=== PATIENT | female | born 1935 | race Caucasian/White ===

== ENCOUNTER → 2018-05-28 12:40 | Outpatient (CLI) | payer MEDICARE, OTHER, SELFPAY ==
--- NOTE | 2018-05-28 | DI.US.S_ITS ---
PROCEDURE: US CAROTID DOPPLER BI INDICATIONS: DIZZINESS, VERTIGO TECHNIQUE: Color and pulse Doppler interrogation was performed of both carotid systems, with image documentation and velocity measurements. COMPARISON: None. FINDINGS: Stenosis calculations are based on SRU (Society of Radiologists in Ultrasound) criteria. Right side: Brachial blood pressure: 137/85 mm Hg. Common carotid artery peak systolic velocity: 53 cm/sec. Internal carotid artery peak systolic velocity: 112 cm/sec. Internal carotid artery end diastolic velocity: 12 cm/sec. External carotid artery peak systolic velocity: 125 cm/sec. ICA/CCA peak systolic ratio: 2.1. Lange scale imaging description: Severe scattered plaque. Percent internal carotid artery stenosis: Less than 50%. Vertebral artery: Flow direction is antegrade. Left side: Brachial blood pressure: 130/78 mm Hg. Common carotid artery peak systolic velocity: 87 cm/sec. Internal carotid artery peak systolic velocity: 98 cm/sec. Internal carotid artery end diastolic velocity: 32 cm/sec. External carotid artery peak systolic velocity: 54 cm/sec. ICA/CCA peak systolic ratio: 1 in. Lange scale imaging description: Severe scattered plaque. Percent internal carotid artery stenosis: Less than 50%. Vertebral artery: Flow direction is antegrade. IMPRESSION: Less than 50% bilateral internal carotid artery stenosis. Dictated by: Alireza Cloud [facility] Interpreted: Roberto Burgess MD on 05/28/2018 at 14:41 Approved by: Roberto Burgess M.D. on 05/28/2018 at 15:20
== END ==
PROVIDERS: PCP Family Medicine; Visit Provider Family Medicine
DX: R42 Dizziness and giddiness (principal); I65.23 Occlusion and stenosis of bilateral carotid arteries
CPT/HCPCS: 93880

== ENCOUNTER → 2018-07-01 11:26 | Outpatient (CLI) | payer MEDICARE, OTHER, SELFPAY ==
--- NOTE | 2018-07-01 | DI.MRI.S_ITS ---
PROCEDURE: MR ANGIO NECK W CON INDICATIONS: BILATERAL CAROTID ARTERY STENOSIS TECHNIQUE: Axial and sagittal TruFISP through the neck. Coronal dynamic MRA after the administration of contrast in the arterial and venous phases, with rotating 3-dimensional maximum intensity projection (MIP) reformats constructed from subtraction images. COMPARISON: [facility], , CAROTID DOPPLER BI, 05/28/2018, 12:50. FINDINGS: Image quality: Excellent. Carotid system: Great vessels demonstrate a conventional anatomy as they arise from the aortic arch. The origins of the common carotid arteries appear normal. Bilateral proximal and mid common carotid arteries are widely patent. There is a focal weblike stenosis within the distal right common carotid artery, which is suboptimally evaluated. The right external carotid artery is patent. The right internal carotid artery demonstrates a roughly 30% focal origin stenosis, and is otherwise patent. There is mild, roughly 30% stenosis of the distal left common carotid artery. Left internal carotid artery demonstrates a roughly 30% origin stenosis, and is otherwise patent. Left external carotid artery is patent. Posterior circulation: Right vertebral artery origin is patent. Left vertebral artery origin is not well seen, and is possibly moderately or severely stenotic. The more superior portions of the vertebral arteries demonstrate normal course and caliber. Vertebral arteries join to form a normal appearing basilar artery. Miscellaneous: Subclavian arteries are patent throughout. Pre-contrast images through the neck demonstrate no soft tissue abnormalities. IMPRESSION: 1. Suboptimally visualized right distal common carotid artery stenosis. Given the carotid arterial Doppler examination findings, this is likely a roughly 50% stenosis. 2. Mild, roughly 30% stenoses of the bilateral internal carotid artery origins. 3. Patent right vertebral artery. 4. Suboptimally visualized left vertebral artery origin. Any quantitative measurements of stenosis were performed using NASCET criteria. Dictated by: Pauly Gonzalez M.D. on 07/01/2018 at 13:27 Approved by: Pauly Gonzalez M.D. on 07/01/2018 at 13:32
--- NOTE | 2018-07-01 | DI.MRI.S_ITS ---
PROCEDURE: MR ANGIO HEAD WO CON INDICATIONS: POSTURAL DIZZINESS BILATERAL CAROTID ARTERY STENOS TECHNIQUE: Noncontrast axial 3-D [id number] MR angiogram, with 3-dimensional maximum intensity projection (MIP) reformats of the internal carotid arteries and posterior circulation then performed. COMPARISON: None. FINDINGS: Image quality: Excellent. Anterior circulation: There is mild narrowing of the bilateral cavernous internal carotid arteries. The flow within the paired anterior cerebral arteries is normal and symmetric. The flow within the middle cerebral arteries is normal and symmetric. The anterior communicating artery is seen. No stenoses, occlusions, or aneurysms. Posterior circulation: Visualized portions of the vertebral arteries demonstrate normal caliber, and join to form a normal appearing basilar artery. origin of the right posterior cerebral artery. The flow within the posterior cerebral arteries is normal and symmetric. No stenoses, occlusions, or aneurysms. IMPRESSION: 1. Mild narrowing of the cavernous internal carotid arteries bilaterally. Otherwise negative cerebral MR angiography. Dictated by: Pauly Gonzalez M.D. on 07/01/2018 at 13:23 Approved by: Pauly Gonzalez M.D. on 07/01/2018 at 13:25
== END ==
PROVIDERS: PCP Family Medicine; Visit Provider Family Medicine
DX: I65.23 Occlusion and stenosis of bilateral carotid arteries (principal); R42 Dizziness and giddiness
CPT/HCPCS: 70544; 70548

== ENCOUNTER → 2020-03-24 13:10 | Outpatient (CLI) | payer MEDICARE, OTHER, SELFPAY ==
--- NOTE | 2020-03-24 | DI.ECHO.S_ITS ---
[place] [facility]---------+ [facility] +---------+ : : [address] : : : : [id number] : : : : Phone: [phone]+ Echocardiogram Report + + :Name: MARY DO Study Date: 03/24/2020 Height: 62 in : :[facility] Weight: 163 lb : : Gender: Female BSA: 1.8 m2 : :: 1935 Age: 84 yrs BP: 110/70 mmHg: :Reason For Study: Aortic valve stenosis : : Performed By: Jonelle Page : + + Interpretation Summary 1) Normal left ventricular thickness, size, wall motion, and systolic function (EF 65-70%). 2) Normal right ventricular size and function. 3) There is moderate to severe aortic stenosis (valve area 0.8cm2, mean gradient 33mmHg, severity ratio 0.21). There is mild to moderate aortic regurgitation. 4) No prior Echo available for comparison. Consider cardiology consultation. Procedure: A two-dimensional transthoracic echocardiogram with color flow and Doppler was performed. The study quality was technically adequate. There is no prior echocardiogram noted for this patient. The heart rate ranged between 51-65 bpm during the study. The patient had frequent PACs during the exam. Left Ventricle: The left ventricle is normal in size and wall thickness. The ejection fraction is estimated to be 65-70%. There are no focal wall motion abnormalities. Diastolic parameters suggest a relaxation abnormality of the left ventricle, consistent with probable normal filling pressures. Right Ventricle: The right ventricle is normal in size and function. Atria: The left atrium is moderately dilated. Right atrial size is normal. There is no Doppler evidence for an interatrial shunt. Mitral Valve: The mitral valve leaflets appear moderately thickened, but open well. There is trace mitral regurgitation. Aortic Valve: The aortic valve is moderately calcified. The peak aortic velocity is 3.7 m/sec. The aortic valve mean gradient is 33.3 mmHg. The calculated aortic valve area is 0.8 cm2. There is moderate to severe aortic stenosis. There is mild to moderate aortic regurgitation. Tricuspid Valve: The tricuspid valve is normal. There is mild tricuspid regurgitation. The right ventricular systolic pressure is estimated to be at least 34 mmHg based on an estimated right atrial pressure of 3 mm Hg. Pulmonic Valve: The pulmonic valve is not well seen, but is grossly normal. There is trace pulmonic regurgitation. Great Vessels: The aortic root is normal size. The ascending aorta is at the upper limits of normal in size. The pulmonary artery is not well visualized, but is probably normal size. The IVC is of normal diameter and collapses greater than 50% with a sniff. This suggests a low right atrial pressure of 3 mm Hg. Pericardium/ Pleura There is a trivial pericardial effusion noted. There is no pleural effusion. MMode/2D Measurements & Calculations LVIDd: 5.0 cm LVOT diam: 2.2 cm LVIDs: 2.7 cm Ao root diam: 3.2 cm FS: 46.5 % asc Aorta Diam: 3.5 cm IVSd: 0.76 cm LVPWd: 0.59 cm LV koch. diameter/BSA (cm/m^2): 2.8 LV sys. diameter/BSA (cm/m^2): 1.5 LA A2 area: 25.4 cm2 RA long axis: 5.6 cm LA A4 area: 24.0 cm2 RA area: 18.2 cm2 LA length (vol): 6.1 cm RA vol: 50.2 ml LA vol: 84.3 ml RA : 28.7 ml/m2 LA vol index: 48.1 ml/m2 IVC diam: 1.8 cm RVD1 (basal): 3.4 cm TAPSE: 2.4 cm Doppler Measurements & Calculations Ao V2 max: 366.2 cm/sec LVOT Max Timbo: 77.5 cm/sec Ao V2 mean: 278.3 cm/sec LV V1 max P.4 mmHg Ao max P.6 mmHg LV V1 VTI: 20.2 cm Ao mean P.3 mmHg SEVERO(I,D): 0.77 cm2 Ao V2 VTI: 95.3 cm SEVERO(V,D): 0.77 cm2 sev ratio: 0.21 SEVERO indexed to BSA (cm^2/m^2): 0.44 AI P1/2t: 653.0 msec AI dec slope: 135.3 cm/sec2 MV E max timbo: 94.9 cm/sec TR max timbo: 277.0 cm/sec MV A max timbo: 104.6 cm/sec TR max P.7 mmHg MV E/A: 0.91 PA V2 max: 78.1 cm/sec Med Peak E' Timbo: 3.7 cm/sec PA V2 mean: 46.3 cm/sec E/E' med: 25.8 PA mean P.0 mmHg Lat Peak E' Timbo: 2.4 cm/sec PA Accel Time: 0.07 sec E/E' lat: 39.2 E/e' average: 32.5 MV dec time: 0.15 sec SV(NARINDER): 73.3 ml Reading Physician:05:26 PM
== END ==
PROVIDERS: PCP Family Medicine; Referring Provider Family Medicine; Visit Provider Family Medicine
DX: I08.2 Rheumatic disorders of both aortic and tricuspid valves (principal)
CPT/HCPCS: 93306

== ENCOUNTER → 2021-02-01 13:11 | Outpatient (CLI) | payer MEDICARE, OTHER, SELFPAY ==
--- NOTE | 2021-02-01 13:13 | DI.ECHO.S_ITS ---
[place] +---------+ [facility] +---------+ : : [address] : : : : [id number] : : : : Phone: [phone]+ Echocardiogram Report + + :Name: MARY DO Study Date: 02/01/2021 Height: 61 in : :[facility] ReadingLocation: Weight: 160 lb : : Gender: Female BSA: 1.7 m2 : :: 1935 Age: 85 yrs BP: 120/81 mmHg: :Reason For Study: AORTIC INSUFFICIENCY : :Ordering Physician: EDNA, : :[place] Performed By: Cecile Cutler : :Referring: [place]NA BISHOP : + + Interpretation Summary 1) Normal left ventricular thickness, size, wall motion, and systolic function (EF 65-70%). 2) Normal right ventricular size and function. 3) There is severe aortic stenosis (valve area 0.7cm2, mean gradient 40mmHg, severity ratio 0.17). There is mild to moderate aortic regurgitation. 4) Compared to the Echo done 03/24/2020, aortic stenosis has progressed from moderate-severe to severe on this study. Recommend cardiology consultation. Procedure: A two-dimensional transthoracic echocardiogram with color flow and Doppler was performed. The study quality was technically adequate. Comparison is made with the echocardiogram of 03/24/2020. The heart rate ranged between 68-92 bpm during the study. Left Ventricle: The left ventricle is normal in size. Proximal septal thickening is noted. The ejection fraction is estimated to be 65-70%. Left ventricular systolic function appears normal without focal wall motion abnormalities. Diastolic parameters suggest a pseudonormalization pattern, consistent with probable elevated filling pressures. Right Ventricle: The right ventricle is normal in size and function. Atria: The left atrium is severely dilated. Right atrial size is normal. There is no Doppler evidence for an interatrial shunt. Mitral Valve: The mitral valve leaflets appear moderately thickened, but open well. The mitral valve leaflets are mildly calcified. There is mild mitral annular calcification. There is trace mitral regurgitation. Aortic Valve: The aortic valve is trileaflet. The aortic valve is moderately calcified. There is severe aortic stenosis. The peak aortic velocity is 4.4 m/sec. The aortic valve mean gradient is 40 mmHg. Aortic valve velocity ratio is 0.17. There is mild to moderate aortic regurgitation. Tricuspid Valve: The tricuspid valve is normal in structure and function. There is mild tricuspid regurgitation. The right ventricular systolic pressure is estimated to be at least 31 mmHg based on an estimated right atrial pressure of 3 mm Hg. Pulmonic Valve: The pulmonic valve is not well visualized. There is no pulmonic valvular regurgitation. Great Vessels: The aortic root is normal size. The ascending aorta is mildly enlarged. The IVC is of normal diameter and collapses greater than 50% with a sniff. This suggests a low right atrial pressure of 3 mm Hg. Pericardium/ Pleura There is a trace pericardial effusion that is circumferential. There is no pleural effusion. MMode/2D Measurements & Calculations LVIDd: 4.8 cm LVOT diam: 2.1 cm LVIDs: 3.0 cm Ao root diam: 3.0 cm FS: 36.4 % asc Aorta Diam: 3.4 cm IVSd: 0.96 cm Ao Arch Diam (Prox Trans): 2.4 cm LVPWd: 1.2 cm LV koch. diameter/BSA (cm/m^2): 2.8 LV sys. diameter/BSA (cm/m^2): 1.8 LA A2 area: 27.3 cm2 RA long axis: 5.9 cm LA A4 area: 20.5 cm2 RA area: 18.7 cm2 LA length (vol): 6.0 cm RA vol: 50.6 ml LA vol: 79.7 ml RA : 29.5 ml/m2 LA vol index: 46.4 ml/m2 IVC diam: 1.2 cm RVD1 (basal): 2.3 cm TAPSE: 2.7 cm Doppler Measurements & Calculations Ao V2 max: 404.7 cm/sec LVOT Max Timbo: 82.6 cm/sec Ao V2 mean: 302.5 cm/sec LV V1 max P.7 mmHg Ao max P.5 mmHg LV V1 VTI: 16.9 cm Ao mean P.2 mmHg SEVERO(I,D): 0.58 cm2 Ao V2 VTI: 101.4 cm SEVERO(V,D): 0.70 cm2 sev ratio: 0.17 SEVERO indexed to BSA (cm^2/m^2): 0.34 MV E max timbo: 82.2 cm/sec TR max timbo: 262.2 cm/sec MV A max timbo: 107.2 cm/sec TR max P.5 mmHg MV E/A: 0.77 PA pr(Accel): 44.7 mmHg Med Peak E' Timbo: 5.7 cm/sec E/E' med: 14.4 Lat Peak E' Timbo: 5.0 cm/sec E/E' lat: 16.5 E/e' average: 15.5 MV dec time: 0.27 sec SV(LVOT): 58.4 ml Reading Physician:05:56 PM
== END ==
PROVIDERS: PCP Family Medicine; Referring Provider Family Medicine; Visit Provider Family Medicine
DX: I08.2 Rheumatic disorders of both aortic and tricuspid valves (principal); I77.89 Other specified disorders of arteries and arterioles
CPT/HCPCS: 93306

== ENCOUNTER → 2021-02-07 11:21 | Outpatient (CLI) | payer MEDICARE, OTHER, SELFPAY ==
[2021-02-07 19:24] LABS: Alanine Aminotransferase 15 IU/L (<35); Albumin 3.8 g/dL (3.5-5.0); Albumin Globulin Ratio 1.4 (1.0-2.8); Alkaline Phosphatase 62 U/L (38-126); Aspartate Aminotransferase 31 IU/L (14-36); BUN Creatinine Ratio 21.2 (6-22); Bilirubin Total 0.6 mg/dL (0.2-1.3); Blood Urea Nitrogen 18 mg/dL (7-17); Calcium 9.6 mg/dL (8.4-10.2); Carbon Dioxide 30 mmol/L (22-32); Chloride 104 mmol/L (98-107); Estimated Glomerular Filt Rate > 60.0 mL/min (>60); Globulin 2.7 g/dL (1.7-4.1); Glucose 93 mg/dL (80-110); HEMOLYSIS < 15 (0-50); Potassium 4.5 mmol/L (3.4-5.1); Sodium 139 mmol/L (137-145); Total Protein 6.5 g/dL (6.3-8.2)
[2021-02-07 19:45] LABS: TSH w/ Reflex to FT4 0.09 uIU/mL (0.47-4.68)
[2021-02-07 20:33] LABS: Free T4, Direct Thyroxine 1.81 ng/dL (0.78-2.19)
== END ==
PROVIDERS: PCP Family Medicine; Visit Provider Family Medicine
DX: I10 Essential (primary) hypertension (principal); I35.0 Nonrheumatic aortic (valve) stenosis
CPT/HCPCS: 80053; 84439; 84443

== ENCOUNTER → 2021-05-15 09:17 | Outpatient (CLI) | payer MEDICARE, OTHER, SELFPAY ==
[2021-05-15 19:15] LABS: Prothrombin Time 11.4 SECONDS (10.1-12.7)
== END ==
PROVIDERS: PCP Family Medicine; Visit Provider Internal Medicine Cardiovascular Disease
DX: I10 Essential (primary) hypertension (principal); I35.0 Nonrheumatic aortic (valve) stenosis; I35.1 Nonrheumatic aortic (valve) insufficiency
CPT/HCPCS: 85610

== ENCOUNTER → 2021-05-17 09:32 | Outpatient (CLI) | payer MEDICARE, OTHER, SELFPAY ==
[2021-05-17 20:13] LABS: Alanine Aminotransferase 22 IU/L (<35); Albumin 4.4 g/dL (3.5-5.0); Albumin Globulin Ratio 1.4 (1.0-2.8); Alkaline Phosphatase 60 U/L (38-126); Aspartate Aminotransferase 38 IU/L (14-36); BUN Creatinine Ratio 20.4 (6-22); Bilirubin Total 0.8 mg/dL (0.2-1.3); Blood Urea Nitrogen 21 mg/dL (7-17); Calcium 9.9 mg/dL (8.4-10.2); Carbon Dioxide 34 mmol/L (22-32); Chloride 102 mmol/L (98-107); Cholesterol 195 mg/dL (140-199); Estimated Glomerular Filt Rate 51.2 mL/min (>60); Globulin 3.1 g/dL (1.7-4.1); Glucose 83 mg/dL (80-110); HDL Cholesterol 90 mg/dL (40-60); HEMOLYSIS < 15 (0-50); LDL Cholesterol Calculated 90 mg/dL (<100); Potassium 4.6 mmol/L (3.4-5.1); Sodium 141 mmol/L (137-145); Total Protein 7.5 g/dL (6.3-8.2); Triglycerides 76 mg/dL (35-150)
== END ==
PROVIDERS: PCP Family Medicine; Visit Provider Internal Medicine Cardiovascular Disease
DX: E78.5 Hyperlipidemia, unspecified (principal); I10 Essential (primary) hypertension; I35.0 Nonrheumatic aortic (valve) stenosis; I35.1 Nonrheumatic aortic (valve) insufficiency
CPT/HCPCS: 80053; 80061

== ENCOUNTER → 2021-05-28 08:28 | Outpatient (CLI) | payer MEDICARE, OTHER, SELFPAY ==
[2021-05-28 22:09] LABS: COVID19 - ORCAS (NP or Nasal) Negative (Negative)
== END ==
PROVIDERS: PCP Family Medicine; Visit Provider Family Medicine
DX: Z20.822 Contact with and (suspected) exposure to COVID-19 (principal)
CPT/HCPCS: C9803; U0003

== ENCOUNTER → 2021-09-11 09:20 | Outpatient (CLI) | payer MEDICARE, OTHER, SELFPAY ==
[2021-09-11 18:58] LABS: Hematocrit 43.6 % (36-46); Hemoglobin 14.5 g/dL (12.0-16.0); Mean Corpuscular HGB Conc 33.4 % (30-36); Platelet Count 276 X10^3/uL (150-400); Red Blood Cell Count 4.54 X10^6/uL (4.0-5.2); Red Cell Distribution Width 13.4 % (11.6-14.8); White Blood Cell Count 6.8 X10^3/uL (4.5-11.0)
[2021-09-11 19:16] LABS: Blood Urea Nitrogen 12 mg/dL (7-17); Calcium 9.9 mg/dL (8.4-10.2); Carbon Dioxide 33 mmol/L (22-32); Chloride 102 mmol/L (98-107); Estimated Glomerular Filt Rate > 60.0 mL/min (>60); Glucose 88 mg/dL (80-110); HEMOLYSIS 16 (0-50); Potassium 4.3 mmol/L (3.4-5.1); Sodium 137 mmol/L (137-145)
== END ==
PROVIDERS: Internal Medicine Interventional Cardiology; PCP Family Medicine; Referring Provider Family Medicine; Visit Provider Family Medicine
DX: I35.0 Nonrheumatic aortic (valve) stenosis (principal)
CPT/HCPCS: 80048; 85027

== ENCOUNTER → 2023-01-07 14:17 | Outpatient (CLI) | payer MEDICARE, OTHER, SELFPAY | PROVIDERS: PCP Family Medicine; Visit Provider Family Medicine | DX: R39.89 Other symptoms and signs involving the genitourinary system (principal) | CPT/HCPCS: 87086 ==

== ENCOUNTER → 2023-03-03 13:24 | Outpatient (CLI) | payer MEDICARE, OTHER, SELFPAY ==
[2023-03-03 20:13] LABS: Add Manual Diff / Slide Review NO; Basophils Absolute Auto 100 /uL (0-100); Basophils Percent Auto 1.2 % (0-2); Eosinophils Absolute Auto 200 /uL (0-450); Eosinophils Percent Auto 2.5 % (2-4); Lymphocytes Absolute Auto 1800 /uL (1100-4500); Lymphocytes Percent Auto 21.3 % (25-40); Mean Corpuscular HGB Conc 32.5 % (30-36); Mean Corpuscular Hemoglobin 27.1 PG (26-34); Mean Corpuscular Volume 83.6 fL (80-100); Monocytes Absolute Auto 800 /uL (0-900); Monocytes Percent Auto 9.3 % (3-14); Neutrophils Absolute Auto 5400 /uL (1500-7000); Neutrophils Percent Auto 65.7 % (50-75); Platelet Count 305 X10^3/uL (150-400); Red Blood Cell Count 4.79 X10^6/uL (4.0-5.2); White Blood Cell Count 8.2 X10^3/uL (4.5-11.0)
[2023-03-03 20:24] LABS: Alanine Aminotransferase 18 IU/L (<35); Albumin Globulin Ratio 1.3 (1.0-2.8); Alkaline Phosphatase 66 U/L (38-126); Aspartate Aminotransferase 33 IU/L (14-36); BUN Creatinine Ratio 15.6 (6-22); Bilirubin Total 0.5 mg/dL (0.2-1.3); Blood Urea Nitrogen 14 mg/dL (7-17); Calcium 9.4 mg/dL (8.4-10.2); Carbon Dioxide 32 mmol/L (22-32); Chloride 99 mmol/L (98-107); Estimated Glomerular Filt Rate > 60 mL/min (>60); Globulin 3.2 g/dL (1.7-4.1); Glucose 123 mg/dL (80-110); HEMOLYSIS < 15 (0-50); Potassium 4.3 mmol/L (3.4-5.1); Sodium 136 mmol/L (137-145); Total Protein 7.2 g/dL (6.3-8.2)
[2023-03-03 20:52] LABS: Thyroid Stimulating Hormone 7.66 uIU/mL (0.47-4.68)
== END ==
PROVIDERS: PCP Family Medicine; Visit Provider Family Medicine
DX: E03.9 Hypothyroidism, unspecified (principal); I10 Essential (primary) hypertension; I25.10 Atherosclerotic heart disease of native coronary artery without angina pectoris; E78.5 Hyperlipidemia, unspecified
CPT/HCPCS: 80053; 84443; 85025

== ENCOUNTER → 2023-04-16 11:21 | Outpatient (CLI) | payer MEDICARE, OTHER, SELFPAY ==
[2023-04-16 20:14] LABS: Add Manual Diff / Slide Review NO; Basophils Absolute Auto 100 /uL (0-100); Basophils Percent Auto 0.8 % (0-2); Eosinophils Absolute Auto 200 /uL (0-450); Eosinophils Percent Auto 1.6 % (2-4); Hematocrit 41.1 % (36-46); Hemoglobin 13.6 g/dL (12.0-16.0); Lymphocytes Absolute Auto 1100 /uL (1100-4500); Lymphocytes Percent Auto 11.3 % (25-40); Mean Corpuscular Hemoglobin 28.2 PG (26-34); Mean Corpuscular Volume 85.5 fL (80-100); Monocytes Absolute Auto 1100 /uL (0-900); Monocytes Percent Auto 10.9 % (3-14); Neutrophils Absolute Auto 7500 /uL (1500-7000); Neutrophils Percent Auto 75.4 % (50-75); Platelet Count 310 X10^3/uL (150-400); Red Blood Cell Count 4.81 X10^6/uL (4.0-5.2)
[2023-04-16 20:28] LABS: Alanine Aminotransferase 13 IU/L (<35); Albumin Globulin Ratio 1.3 (1.0-2.8); Alkaline Phosphatase 69 U/L (38-126); Aspartate Aminotransferase 26 IU/L (14-36); BUN Creatinine Ratio 21.4 (6-22); Bilirubin Total 0.6 mg/dL (0.2-1.3); Blood Urea Nitrogen 15 mg/dL (7-17); Calcium 9.7 mg/dL (8.4-10.2); Carbon Dioxide 27 mmol/L (22-32); Chloride 103 mmol/L (98-107); Estimated Glomerular Filt Rate > 60 mL/min (>60); Globulin 3.1 g/dL (1.7-4.1); Glucose 86 mg/dL (80-110); HEMOLYSIS 18 (0-50); Magnesium 1.7 mg/dL (1.6-2.3); Potassium 4.5 mmol/L (3.4-5.1); Sodium 138 mmol/L (137-145); Total Protein 7.1 g/dL (6.3-8.2)
[2023-04-16 20:47] LABS: Thyroid Stimulating Hormone 0.027 uIU/mL (0.47-4.68)
== END ==
PROVIDERS: PCP Family Medicine; Visit Provider Family Medicine
DX: R55 Syncope and collapse (principal); E03.9 Hypothyroidism, unspecified; I10 Essential (primary) hypertension
CPT/HCPCS: 80053; 83735; 84443; 85025

== ENCOUNTER → 2023-05-20 13:27 | Outpatient (CLI) | payer MEDICARE, OTHER, SELFPAY ==
[2023-05-20 19:23] LABS: Alanine Aminotransferase 16 IU/L (<35); Albumin 4.2 g/dL (3.5-5.0); Albumin Globulin Ratio 1.4 (1.0-2.8); Alkaline Phosphatase 78 U/L (38-126); Aspartate Aminotransferase 29 IU/L (14-36); Bilirubin Total 0.7 mg/dL (0.2-1.3); Blood Urea Nitrogen 16 mg/dL (7-17); Calcium 9.7 mg/dL (8.4-10.2); Carbon Dioxide 29 mmol/L (22-32); Chloride 101 mmol/L (98-107); Estimated Glomerular Filt Rate > 60 mL/min (>60); Glucose 116 mg/dL (80-110); HEMOLYSIS < 15 (0-50); Potassium 4.3 mmol/L (3.4-5.1); Sodium 137 mmol/L (137-145); Total Protein 7.2 g/dL (6.3-8.2)
[2023-05-20 19:40] LABS: Thyroid Stimulating Hormone 0.157 uIU/mL (0.47-4.68)
== END ==
PROVIDERS: PCP Family Medicine; Visit Provider Family Medicine
DX: I10 Essential (primary) hypertension (principal); R79.89 Other specified abnormal findings of blood chemistry
CPT/HCPCS: 80053; 84443

== ENCOUNTER → 2023-07-28 12:43 | Outpatient (CLI) | payer MEDICARE, OTHER, SELFPAY ==
[2023-07-28 20:11] LABS: Vitamin B12 Reflex MMA if <400 285 pg/mL (239-931)
[2023-07-31 11:09] LABS: Methylmalonic Acid,Serum 330 nmol/L (0-378)
== END ==
PROVIDERS: PCP Family Medicine; Visit Provider Family Medicine
DX: R41.3 Other amnesia (principal); E03.9 Hypothyroidism, unspecified
CPT/HCPCS: 82607; 83921; 84443

== ENCOUNTER → 2023-09-09 15:02 | Outpatient (CLI) | payer MEDICARE, OTHER, SELFPAY | PROVIDERS: PCP Family Medicine; Visit Provider Physician Assistant | DX: R39.89 Other symptoms and signs involving the genitourinary system (principal) | CPT/HCPCS: 87086 ==

== ENCOUNTER → 2023-10-07 13:10 | Outpatient (CLI) | payer MEDICARE, OTHER, SELFPAY ==
[2023-10-07 19:21] LABS: Add Manual Diff / Slide Review NO; Basophils Absolute Auto 100 /uL (0-100); Basophils Percent Auto 1.1 % (0-2); Eosinophils Absolute Auto 500 /uL (0-450); Eosinophils Percent Auto 6.6 % (2-4); Hematocrit 41.2 % (36-46); Hemoglobin 13.7 g/dL (12.0-16.0); Lymphocytes Absolute Auto 1700 /uL (1100-4500); Lymphocytes Percent Auto 22.7 % (25-40); Mean Corpuscular HGB Conc 33.2 % (30-36); Mean Corpuscular Hemoglobin 30.1 PG (26-34); Mean Corpuscular Volume 90.5 fL (80-100); Monocytes Absolute Auto 1000 /uL (0-900); Monocytes Percent Auto 13.5 % (3-14); Neutrophils Absolute Auto 4200 /uL (1500-7000); Neutrophils Percent Auto 56.1 % (50-75); Platelet Count 294 X10^3/uL (150-400); Red Blood Cell Count 4.55 X10^6/uL (4.0-5.2); Red Cell Distribution Width 16.5 % (11.6-14.8); White Blood Cell Count 7.5 X10^3/uL (4.5-11.0)
[2023-10-07 19:38] LABS: Appearance Urine UA CLEAR; Bilirubin Urine UA NEGATIVE (NEGATIVE); Color Urine UA YELLOW; Glucose Urine UA NEGATIVE (Negative); Ketones Urine UA NEGATIVE (NEGATIVE); Leukocyte Esterase Urine UA 1+ (NEGATIVE); Nitrite Urine UA NEGATIVE (Negative); Occult Blood Urine UA NEGATIVE (Negative); Protein Urine UA NEGATIVE (Negative); Specific Gravity Urine UA 1.015 (1.000-1.035)
[2023-10-07 19:42] LABS: Alanine Aminotransferase 16 IU/L (<35); Albumin 3.7 g/dL (3.5-5.0); Albumin Globulin Ratio 1.2 (1.0-2.8); Alkaline Phosphatase 68 U/L (38-126); Aspartate Aminotransferase 32 IU/L (14-36); BUN Creatinine Ratio 23.3 (6-22); Bilirubin Total 0.5 mg/dL (0.2-1.3); Blood Urea Nitrogen 21 mg/dL (7-17); Calcium 9.9 mg/dL (8.4-10.2); Carbon Dioxide 28 mmol/L (22-32); Chloride 101 mmol/L (98-107); Estimated Glomerular Filt Rate > 60 mL/min (>60); Glucose 84 mg/dL (80-110); HEMOLYSIS 25 (0-50); Potassium 4.7 mmol/L (3.4-5.1); Sodium 136 mmol/L (137-145); Total Protein 6.7 g/dL (6.3-8.2)
[2023-10-07 19:53] LABS: Urine Volume Low Vol <10mL (spun)
[2023-10-07 19:54] LABS: Bacteria Urine Occasional (0-1); Culture Indicated Urine Specimen Cultured; Mucus Urine 1+ (Negative); RBC Urine 0-1/HPF (0-5/HPF); Squamous Epithelial Cell Urine 1-5 /HPF (0-5/HPF); WBC Urine 1-5/HPF (0-5/HPF)
== END ==
PROVIDERS: Physician Assistant; PCP Family Medicine; Visit Provider Family Medicine
DX: R55 Syncope and collapse (principal); Z91.89 Other specified personal risk factors, not elsewhere classified; R82.90 Unspecified abnormal findings in urine
CPT/HCPCS: 80053; 81001; 85025; 87086

== ENCOUNTER → 2023-10-09 14:17 | Outpatient (CLI) | payer MEDICARE, OTHER, SELFPAY ==
[2023-10-09 20:25] LABS: Appearance Urine UA CLEAR; Bilirubin Urine UA NEGATIVE (NEGATIVE); Color Urine UA YELLOW; Glucose Urine UA NEGATIVE (Negative); Ketones Urine UA NEGATIVE (NEGATIVE); Leukocyte Esterase Urine UA NEGATIVE (NEGATIVE); Nitrite Urine UA NEGATIVE (Negative); Occult Blood Urine UA 2+ (Negative); Protein Urine UA NEGATIVE (Negative); Urobilinogen Urine UA 0.2 E.U./dL (0.2)
[2023-10-09 20:29] LABS: pH Urine UA 5.5 (4.5-8.0)
[2023-10-09 20:32] LABS: Bacteria Urine None Seen; Culture Indicated Urine Cult Not Indicated; RBC Urine 0-1/HPF (0-5/HPF); Squamous Epithelial Cell Urine None Seen (0-5/HPF); Urine Volume 10mL (spun); WBC Urine None Seen (0-5/HPF)
== END ==
PROVIDERS: PCP Family Medicine; Visit Provider Family Medicine
DX: R82.90 Unspecified abnormal findings in urine (principal); R31.9 Hematuria, unspecified; Z91.89 Other specified personal risk factors, not elsewhere classified
CPT/HCPCS: 81001

== ENCOUNTER → 2023-10-12 09:30 | Outpatient (CLI) | payer MEDICARE, OTHER, SELFPAY ==
--- NOTE | 2023-10-12 09:34 | DI.CT.S_ITS ---
PROCEDURE: CT KIDNEY URETER BLADDER (KUB) INDICATIONS: hematuria, R flank pain TECHNIQUE: Axial sections were acquired from the lung bases to the pubic symphysis. Coronal and sagittal reformats were performed. For radiation dose reduction, the following was used: automated exposure control, adjustment of mA and/or kV according to patient size. COMPARISON: None. FINDINGS: Image quality: Streak metal artifact from right hip prosthesis limits evaluation of adjacent soft tissue in the pelvis.. Lower Chest: No significant findings. URINARY: Right Kidney: No stones or hydronephrosis. Right Ureter: There is 4 mm calcific density in the region of the distal right ureter, possible obstructing calculus, however evaluation is limited due to adjacent streak metal artifact from right hip prosthesis. No significant hydroureter. Left Kidney: No stones or hydronephrosis. Left Ureter: No hydroureter. Bladder: Normal wall thickness. No stones. ABDOMEN: Liver: No contour-deforming solid mass. Gallbladder: No radiopaque gallstones or wall thickening. Biliary ducts: No biliary dilation. Pancreas: No ductal dilation. Spleen: Size is within normal limits. Adrenal Glands: No adrenal nodules. Stomach and Bowel: Normal colonic caliber, without significant wall thickening. Moderate hiatal hernia. Sigmoid diverticulosis without definite pericolonic inflammation, free air or fluid.. Peritoneum: No abnormal intraperitoneal fluid. No free air. Ventral Wall: Small fat containing ventral hernia. Abdominal Nodes: No enlarged retroperitoneal or mesenteric lymph nodes. Vessels: Aorta and inferior vena cava are normal in size. Aorto bi iliac atherosclerotic calcifications. PELVIS: Pelvic Organs: Unremarkable. Pelvic Nodes: Unremarkable. Miscellaneous: No inguinal hernias are seen. Bones: No acute or suspicious osseous abnormality. Status post right hip prosthesis. IMPRESSION: Possible 4 mm obstructing calculus in the distal right ureter, however there is no significant upstream right hydroureter. Evaluation is limited due to adjacent hip prosthesis. Extensive sigmoid diverticulosis without britney evidence of acute inflammation. Moderate hiatal hernia. Approved by: Daisy Friend M.D. on 10/12/2023 at 12:02
== END ==
LOC: CT 09:31
PROVIDERS: PCP Family Medicine; Referring Provider Family Medicine; Visit Provider Family Medicine
DX: N20.1 Calculus of ureter (principal); R31.9 Hematuria, unspecified; K57.30 Diverticulosis of large intestine without perforation or abscess without bleeding; K44.9 Diaphragmatic hernia without obstruction or gangrene; K43.9 Ventral hernia without obstruction or gangrene
CPT/HCPCS: 74176

== ENCOUNTER → 2023-11-20 10:54 | Outpatient (CLI) | payer MEDICARE, OTHER, SELFPAY ==
--- NOTE | 2023-11-20 10:56 | DI.MRI.S_ITS ---
PROCEDURE: MR HEAD/BRAIN WO/W CON INDICATIONS: syncope x 2 (concern for seizures) TECHNIQUE: Noncontrast axial T1 spin echo, axial T2 fast spin echo, sagittal and axial FLAIR, coronal T2 fast spin echo, axial gradient echo, axial diffusion and ADC through the brain. After the administration of contrast, axial and coronal and sagittal T1 spin echo with fat saturation through the brain. COMPARISON: None. FINDINGS: Image quality: Excellent. CSF spaces: Basal cisterns are patent. No extra-axial fluid collections. Ventricles are normal in size and shape. Brain: No midline shift. No intracranial bleeds or masses. No abnormal intracranial enhancement. There is cerebral volume loss for age. There is periventricular white matter chronic small vessel ischemic change, including within the brainstem. Diffusion-weighted images demonstrate no acute infarct. No chronic ischemic insults. Normal intravascular flow voids are present. Skull and face: Calvarial marrow is normal in signal. Bilateral lens replacements. Otherwise, the orbits are unremarkable. Sinuses: Hypoplastic maxillary sinuses. The paranasal sinuses are clear. Trace bilateral mastoid fluid. IMPRESSION: No cause for patient's symptoms is identified. No acute intracranial abnormalities. Age-related global volume loss and chronic microvascular ischemic changes are present. Dictated by: Trino Jack M.D. on 11/20/2023 at 15:48 Approved by: Trino Jack M.D. on 11/20/2023 at 15:52
== END ==
PROVIDERS: PCP Family Medicine; Referring Provider Family Medicine; Visit Provider Family Medicine
DX: F09 Unspecified mental disorder due to known physiological condition (principal); R55 Syncope and collapse; J32.0 Chronic maxillary sinusitis
CPT/HCPCS: 70553; A9579

== ENCOUNTER → 2023-12-18 10:48 | Outpatient (CLI) | payer MEDICARE, OTHER, SELFPAY ==
--- NOTE | 2023-12-18 10:50 | DI.CT.S_ITS ---
PROCEDURE: CT IVP A/P W/WO INDICATIONS: Right Lower Abdominal TECHNIQUE: Optional 5 mm thick noncontrast images acquired from the diaphragm to the symphysis pubis. After the administration of intravenous contrast, 5 mm thick images acquired from the diaphragm to the symphysis pubis after a 10-minute delay. 2 mm thick coronal and sagittal reformats were then performed of the kidneys and ureters. For radiation dose reduction, the following was used: automated exposure control, adjustment of mA and/or kV according to patient size. COMPARISON: None. FINDINGS: Image quality: Diagnostic. Kidneys and Ureters: Normal size of the kidneys. Punctate nonobstructing left-sided nephrolithiasis in the superior calyx. No perinephric fat stranding. There is normal bilateral renal enhancement. Renal calyces appear normal in morphology when filled with contrast. Opacified portions of both ureters demonstrate normal caliber Bladder: Bladder wall thickness is normal. No calcified bladder stones. OTHER: Lower chest: Cardiomegaly. Prosthetic aortic valve. Large hiatal hernia. Liver: No solid mass. Gallbladder: Gallbladder sludge versus small stones. No wall thickening or pericholecystic edema to suggest acute cholecystitis. Biliary ducts: No biliary dilation. Pancreas: No ductal dilation. Spleen: Size is within normal limits. Adrenal Glands: No adrenal nodules. Stomach and Bowel: Colonic diverticulosis without evidence of diverticulitis. Mildly abnormal wall thickening of the rectosigmoid junction (series 9, image 10). No adjacent mesorectal adenopathy. Peritoneum: No abnormal intraperitoneal fluid. No free air. Ventral Wall: Small umbilical hernia containing fat. Abdominal Nodes: No retroperitoneal or mesenteric adenopathy by size criteria. Vessels: Aorta and inferior vena cava are normal in size. PELVIS: Pelvic Organs: Unremarkable. Pelvic Nodes: No enlarged lymph nodes. Miscellaneous: No inguinal hernias are seen. Bones: No aggressive osseous abnormality. Grade 1 anterolisthesis of L4 on L5. Right total hip arthroplasty. Moderate left hip osteoarthritis. IMPRESSION: Punctate nonobstructing left-sided nephrolithiasis. No filling defect within the opacified renal collecting system or ureters. Urinary bladder is incompletely distended with contrast. Mildly abnormal colonic wall thickening at the rectosigmoid junction. Recommend direct visualization with colonoscopy, if not performed recently, to exclude malignancy. Colonic diverticulosis without evidence of diverticulitis. Large hiatal hernia. Dictated by: Yang Rodrigues M.D. on 12/18/2023 at 13:33 Approved by: Yang Rodrigues M.D. on 12/18/2023 at 13:39
[2023-12-18 11:25] LABS: Estimated Glomerular Filt Rate > 60 mL/min (>60)
== END ==
PROVIDERS: Radiology Diagnostic Radiology; PCP Family Medicine; Referring Provider Urology; Visit Provider Urology
DX: N20.0 Calculus of kidney (principal); K42.9 Umbilical hernia without obstruction or gangrene; K44.9 Diaphragmatic hernia without obstruction or gangrene; I51.7 Cardiomegaly; K57.90 Diverticulosis of intestine, part unspecified, without perforation or abscess without bleeding; M43.16 Spondylolisthesis, lumbar region; M16.12 Unilateral primary osteoarthritis, left hip; R10.31 Right lower quadrant pain; Z96.641 Presence of right artificial hip joint; Z95.2 Presence of prosthetic heart valve
CPT/HCPCS: 36415; 74178; 82565; Q9967

== ENCOUNTER → 2024-01-27 13:02 | Outpatient (CLI) | payer MEDICARE, OTHER, SELFPAY ==
[2024-01-27 21:11] LABS: Thyroid Stimulating Hormone 11.5 uIU/mL (0.47-4.68)
[2024-01-27 21:24] LABS: Vitamin B12 > 1000 pg/mL (239-931)
== END ==
PROVIDERS: PCP Family Medicine; Visit Provider Family Medicine
DX: I10 Essential (primary) hypertension (principal); E53.8 Deficiency of other specified B group vitamins; F09 Unspecified mental disorder due to known physiological condition; E03.9 Hypothyroidism, unspecified
CPT/HCPCS: 82607; 84443

== ENCOUNTER → 2024-05-04 12:47 | Outpatient (CLI) | payer MEDICARE, OTHER, SELFPAY ==
[2024-05-04 20:10] LABS: Thyroid Stimulating Hormone 15.1 uIU/mL (0.47-4.68)
== END ==
PROVIDERS: PCP Family Medicine; Visit Provider Family Medicine
DX: E03.9 Hypothyroidism, unspecified (principal)
CPT/HCPCS: 84443

== ENCOUNTER → 2024-05-17 10:22 | Outpatient (CLI) | payer MEDICARE, OTHER, SELFPAY ==
[2024-05-17 18:48] LABS: Alanine Aminotransferase 14 IU/L (<35); Albumin 3.8 g/dL (3.5-5.0); Albumin Globulin Ratio 1.2 (1.0-2.8); Alkaline Phosphatase 75 U/L (38-126); Aspartate Aminotransferase 32 IU/L (14-36); Bilirubin Total 0.6 mg/dL (0.2-1.3); Blood Urea Nitrogen 13 mg/dL (7-17); Calcium 9.7 mg/dL (8.4-10.2); Carbon Dioxide 30 mmol/L (22-32); Chloride 99 mmol/L (98-107); Estimated Glomerular Filt Rate > 60 mL/min (>60); Globulin 3.1 g/dL (1.7-4.1); Glucose 99 mg/dL (80-110); HEMOLYSIS < 15 (0-50); Potassium 4.1 mmol/L (3.4-5.1); Sodium 134 mmol/L (137-145); Total Protein 6.9 g/dL (6.3-8.2)
== END ==
PROVIDERS: PCP Family Medicine; Visit Provider Family Medicine
DX: I10 Essential (primary) hypertension (principal)
CPT/HCPCS: 80053

== ENCOUNTER → 2024-10-21 11:19 | Outpatient (CLI) | payer MEDICARE, OTHER, SELFPAY | PROVIDERS: PCP Family Medicine; Visit Provider Physician Assistant Medical | DX: R39.15 Urgency of urination (principal); R30.0 Dysuria | CPT/HCPCS: 87086 ==

== ENCOUNTER → 2024-11-15 13:26 | Outpatient (CLI) | payer MEDICARE, OTHER, SELFPAY ==
[2024-11-15 18:49] LABS: Alanine Aminotransferase 21 IU/L (<35); Albumin 4.5 g/dL (3.5-5.0); Albumin Globulin Ratio 1.4 (1.0-2.8); Alkaline Phosphatase 73 U/L (38-126); Aspartate Aminotransferase 105 IU/L (14-36); Bilirubin Total 0.7 mg/dL (0.2-1.3); Blood Urea Nitrogen 17 mg/dL (7-17); Calcium 9.6 mg/dL (8.4-10.2); Carbon Dioxide 28 mmol/L (22-32); Chloride 101 mmol/L (98-107); Estimated Glomerular Filt Rate 47 mL/min (>60); Globulin 3.2 g/dL (1.7-4.1); Glucose 141 mg/dL (80-110); HEMOLYSIS 45 (0-50); Potassium 4.6 mmol/L (3.4-5.1); Sodium 138 mmol/L (137-145); Total Protein 7.7 g/dL (6.3-8.2)
[2024-11-15 19:15] LABS: Free T3, Triiodothyronine Free 3.25 pg/mL (2.77-5.27); Free T4, Direct Thyroxine 1.44 ng/dL (0.78-2.19)
[2024-11-15 19:28] LABS: Thyroid Stimulating Hormone 0.563 uIU/mL (0.47-4.68)
[2024-11-17 07:09] LABS: Thyroid Peroxidase Antibodies 33 IU/mL (0-34)
== END ==
PROVIDERS: PCP Family Medicine; Visit Provider Family Medicine
DX: E03.9 Hypothyroidism, unspecified (principal); I10 Essential (primary) hypertension
CPT/HCPCS: 80053; 84439; 84443; 84481; 86376

== ENCOUNTER → 2024-12-20 14:41 | Outpatient (CLI) | payer MEDICARE, OTHER, SELFPAY | PROVIDERS: PCP Family Medicine; Visit Provider Physician Assistant | DX: R35.0 Frequency of micturition (principal) | CPT/HCPCS: 81002; 87086 ==

== ENCOUNTER → 2025-02-15 10:18 | Outpatient (CLI) | payer MEDICARE, OTHER, SELFPAY | PROVIDERS: PCP Family Medicine; Visit Provider Physician Assistant Medical | DX: Z01.818 Encounter for other preprocedural examination (principal); R35.0 Frequency of micturition; M25.552 Pain in left hip | CPT/HCPCS: 87086 ==

== ENCOUNTER → 2025-02-16 11:49 | Outpatient (CLI) | payer MEDICARE, OTHER, SELFPAY ==
[2025-02-16 19:53] LABS: Add Manual Diff / Slide Review NO; Basophils Absolute Auto 100 /uL (0-100); Basophils Percent Auto 0.7 % (0-2); Eosinophils Absolute Auto 200 /uL (0-450); Eosinophils Percent Auto 2.6 % (2-4); Hematocrit 41.2 % (36-46); Lymphocytes Absolute Auto 1700 /uL (1100-4500); Lymphocytes Percent Auto 19.9 % (25-40); Mean Corpuscular Hemoglobin 32.1 PG (26-34); Mean Corpuscular Volume 94.7 fL (80-100); Monocytes Absolute Auto 1000 /uL (0-900); Monocytes Percent Auto 12.3 % (3-14); Neutrophils Absolute Auto 5400 /uL (1500-7000); Neutrophils Percent Auto 64.5 % (50-75); Platelet Count 322 X10^3/uL (150-400); Red Blood Cell Count 4.35 X10^6/uL (4.0-5.2); Red Cell Distribution Width 14.9 % (11.6-14.8); White Blood Cell Count 8.4 X10^3/uL (4.5-11.0)
[2025-02-16 20:06] LABS: Alanine Aminotransferase 19 IU/L (<35); Albumin 4.2 g/dL (3.5-5.0); Albumin Globulin Ratio 1.4 (1.0-2.8); Alkaline Phosphatase 80 U/L (38-126); Aspartate Aminotransferase 38 IU/L (14-36); BUN Creatinine Ratio 20.8 (6-22); Bilirubin Total 0.6 mg/dL (0.2-1.3); Blood Urea Nitrogen 21 mg/dL (7-17); Carbon Dioxide 28 mmol/L (22-32); Chloride 100 mmol/L (98-107); Estimated Glomerular Filt Rate 54 mL/min (>60); Glucose 94 mg/dL (70-99); HEMOLYSIS 20 (0-50); Potassium 5.1 mmol/L (3.4-5.1); Sodium 136 mmol/L (137-145); Total Protein 7.2 g/dL (6.3-8.2)
[2025-02-16 20:25] LABS: Hemoglobin A1C% w Est Avg Glu 5.5 % (4.0-6.0)
[2025-02-16 20:32] LABS: Thyroid Stimulating Hormone 0.285 uIU/mL (0.47-4.68)
== END ==
PROVIDERS: Orthopaedic Surgery; PCP Family Medicine; Visit Provider Family Medicine
DX: Z01.812 Encounter for preprocedural laboratory examination (principal); R73.9 Hyperglycemia, unspecified; E03.9 Hypothyroidism, unspecified; R25.2 Cramp and spasm; R94.4 Abnormal results of kidney function studies; R74.01 Elevation of levels of liver transaminase levels
CPT/HCPCS: 80053; 83036; 84443; 85025

== ENCOUNTER → 2025-03-21 12:20 | Outpatient (CLI) | payer MEDICARE, OTHER, SELFPAY ==
[2025-03-21 12:57] LABS: Appearance Urine UA CLEAR; Bilirubin Urine UA NEGATIVE (NEGATIVE); Color Urine UA YELLOW; Glucose Urine UA NEGATIVE (Negative); Ketones Urine UA NEGATIVE (NEGATIVE); Leukocyte Esterase Urine UA NEGATIVE (NEGATIVE); Nitrite Urine UA NEGATIVE (Negative); Occult Blood Urine UA NEGATIVE (Negative); Protein Urine UA NEGATIVE (Negative); Specific Gravity Urine UA 1.015 (1.000-1.035); Urobilinogen Urine UA 1.0 E.U./dL (0.2); pH Urine UA 7.5 (4.5-8.0)
[2025-03-21 13:08] LABS: Culture Indicated Urine Cult Not Indicated
== END ==
PROVIDERS: PCP Family Medicine; Referring Provider Orthopaedic Surgery; Visit Provider Orthopaedic Surgery
DX: N39.0 Urinary tract infection, site not specified (principal)
CPT/HCPCS: 81001

== ENCOUNTER 2025-03-23 08:53 | Day surgery (SDC) | payer MEDICARE, OTHER, SELFPAY ==
[2025-03-18 10:39] VITALS: BMI 25.2
[2025-03-23] VITALS (11 sets, daily range): BP systolic 119–180; BP diastolic 65–101; PULSE 64–79; RESP 16–19; TEMP 35.6–36.6; O2SAT 93–98; BMI 25.2; BMI 26.2
--- NOTE | 2025-03-23 | DI.RAD.S_ITS ---
PROCEDURE: XR HIP LT 4V INDICATIONS: INTRA OP TOTAL LEFT HIP TECHNIQUE: AP pelvis and lateral view of the hip acquired. COMPARISON: None. FINDINGS: 4 intraoperative fluoroscopic spot images are submitted for left hip arthroplasty. Procedure reported separately under operative report. Dosimetry not delineated. IMPRESSION: Intraoperative fluoroscopy. Dictated by: David Law M.D. on 03/23/2025 at 14:41 Approved by: David Law M.D. on 03/23/2025 at 14:42
--- NOTE | 2025-03-23 06:00 | DI.RAD.S_ITS ---
PROCEDURE: XR HIP W PEL IF DONE LT 2V INDICATIONS: TOTAL LEFT HIP TECHNIQUE: AP pelvis and lateral view of the hip acquired. COMPARISON: None. FINDINGS: Bones: Patient is status post left hip arthroplasty, with hardware components in expected positions. The hip joint appears congruent. The visualized bony structures appear intact. Soft tissues: Overlying postoperative changes are noted. No suspicious soft tissue densities. IMPRESSION: Expected post-operative appearance of a hip arthroplasty. Dictated by: Levy Echeverria M.D. on 03/23/2025 at 14:57 Approved by: Levy Echeverria M.D. on 03/23/2025 at 14:57
[2025-03-23] MEDS: CELECOXIB 200 MG CAPSULE PO (09:28)
[2025-03-23] MEDS: ACETAMINOPHEN 325 MG TABLET 975 MG PO (09:28)
[2025-03-23] MEDS: LACTATED RINGERS 1,000 ML 42 ML IV ×2 (09:38→13:03)
[2025-03-23] MEDS: VANCOMYCIN 1,000 MG in SODIUM CHLORIDE 0.9% 250 ML 250 MG IV (09:43)
--- NOTE | 2025-03-23 10:38 | P.OP_ITS ---
Operative Date/Time/Diagnoses Date of procedure: 03/23/25 Time of procedure: 11:20 Pre-op diagnosis: left hip OA Post-op diagnosis: same Procedure & Clinicians Procedure: Left total hip arthroplasty anterior approach Same procedure(s) as scheduled: Yes Indications: The patient has had progressively worsening left hip pain with radiographic c hanges consistent with arthritis. Non-operative management has failed and the patient has requested total hip replacement. The risks, benefits and alternatives to surgery were discussed with the patient prior to proceeding. Risks discussed included, but were not limited to, failure to relieve pain, leg length discrepancy, dislocation, stiffness, infection, nerve damage, deep venous thrombosis, pulmonary embolism, stroke, coma, heart attack, permanent paralysis and , as well as the potential need for eventual revision of the prosthetic. Surgeon: Cheyanne Manuel Scientific Technical Writer: James Palmer Anesthesia Type: General and Spinal Operative Notes Findings: Severe left hip OA, adequate stability, adequate bone Closure Type: primary Specimen(s): none sent Prosthetic devices, grafts, tissues, transplants, or devices: Manuel and nephew 52 mm R3 cup, neutral poly liner,one 6.5 mm screw, anthology standard offset size 3, 36 x -3 cobalt chrome head Applied: none Estimated Blood Loss (mL): 250 Blood products transfused: none Procedure in detail: The patient was brought to the operating room. Patient was carefully positioned in the supine position. Time-out was performed and antibiotics were given. Anesthesia was induced. She was positioned in the on the table in order to allow hyperextension of the hip. The left lower extremity was prepped and draped in a standard sterile fashion. An anterior left hip incision was made 1 fingerbreadth lateral to the anterior superior iliac spine and extended distally towards the greater trochanter. Dissection was carried out through skin and subcutaneous tissues. Superficial hemostasis was achieved. The fascia over the tensor fascia dominique was defined and incised with a knife. Two Allis clamps were used to grasp the fascia. Tensor fascia dominique was retracted laterally. A gelpi retractor was placed. Dissection was carried out down along the neck. The circumflex vessels were carefully identified and cauterized with the Aqua Mantis. PA was used during the procedure was essential for intraoperative retraction and safe implantation of the components. There was good visualization of the femoral neck. A Cobra was placed superior to the neck and the gluteus fibers were carefully stripped from that superior aspect of the capsule. A 2nd retractor was placed along the inferior aspect of the neck. The rectus insertion along the capsule was partially released. A 3rd retractor that was then gently placed over the rim of the acetabulum under the rectus. Capsule was carefully incised and released from the intertrochanteric line circumferentially superior to the mid sagittal line and inferiorly to the mid sagittal line until the lesser trochanter was palpable. A tag stitch was placed both in the superior and inferior limb of the capsular insertion. Along the acetabulum capsule was also released up to the mid sagittal 12:00 position. A portion of the labrum was resected. A saw was used to perform an osteotomy at the level of the intertrochanteric line and the junction of the superior femoral neck leaving approximately 1 finger breath of residual inferior neck above the lesser trochanter. A 2nd cut was made along the femoral neck at the base of the head and a napkin ring of neck was removed. Corkscrew was placed in the femoral head and the head was removed without difficulty. Retractors were then repositioned around the acetabulum. Residual labrum was resected and additional osteophytes were removed. A reamer that was 4 mm below the templated size was placed by hand in the acetabulum and it was reamed to centralize the acetabulum. It was then reamed up to 2 under the templated size and fluoroscopy was brought in to confirm the position of the reaming and depth of reaming. I reamed 1 under the anticipated size. A trial cup was placed and noted that it was appropriately sized and fluoroscopy confirmed position and depth. The component was open and inserted without difficulty fluoroscopic imaging was used to confirm that the cup had been adequately seated and was well positioned. It was further stabilized with a single screw. Neutral poly liner was placed. The cup was tested and noted to be stable. Attention was then directed to the femur. The femur was gently hyperextended additional capsular release was performed as needed in order to allow adequate visualization of the proximal femur with elevation of the femur. Patient was placed in a hyperextended slightly adducted position with maximum external rotation. Box osteotome was used to check for any residual neck as well as sclerotic bone along the trochanter. Upton pepper was placed in the femur. Additional broaching was performed. Canal finder was used to determine the alignment of the canal and position. Size 1 broach was placed. The canal was then appropriately broached up to the templated size as long as there was adequate stability of the broach and serial advancement of the broach without excessive impingement. Specific attention was directed at avoiding varus attempting to direct the distal aspect of the broach more anteriorly and avoiding excessive anteversion. Trial reduction showed acceptable range of motion, good stability, no posterior impingement, moravian of leg length and appropriate lateral shuck. I also hyperflexed the hip and checked that there was no impingement anteriorly and there was good stability with flexion, adduction and internal rotation. Marcaine and Exparel were injected. The stem was placed without difficulty. Repeat trial reduction and x-ray showed acceptable overall position, length, and no evidence of the femoral fracture. Final head was placed. Wound was meticulously irrigated with normal saline. The hip was reduced and additional Exparel and Marcaine were injected. The capsule was closed with interrupted nonabsorbable sutures. The fascia of the tensor was closed with interrupted and running Vicryl. No drain was placed. Any tensor fascia dominique muscle that appeared to be contused or injured which was a minimal amount was carefully resected. Capsule around the tensor was injected with Exparel and Marcaine. The skin was closed with barbed stitches for the subcutaneous tissue and skin. We also used surgical glue. The wound was dressed sterilely. Brief Betadine soak was also used and was meticulously irrigated with normal saline. Patient was transferred to recovery room in satisfactory condition. Complications: none Post-operative Condition: stable Disposition: Acute Care Plan for aftercare: The patient will be maintained on a standard total hip replacement protocol with weight bearing as tolerated and anterior hip precautions. The patient will receive Aspirin and sequential compression devices for DVT prophylaxis. The patient will be discharged home when safe for the home environment.
--- NOTE | 2025-03-23 10:38 | PM.PREOP ---
Pre-operative Note Interval Note History & Physical reviewed/Exam performed by Physician: Yes Changes to H&P: No
[2025-03-23] MEDS: FAMOTIDINE 20 MG/2 ML VIAL IV (11:13)
[2025-03-23] MEDS: CEFAZOLIN 2 GM/100 ML PREMIX 100 ML IV ×2 (11:31→18:48)
[2025-03-23] MEDS: TRANEXAMIC ACID 1,000 MG VIAL 1000 MG INJ ×2 (11:47→13:37)
--- NOTE | 2025-03-23 12:01 | SUR.OPER ---
Supine on padded Finley table with bilateral legs secured in padded positioning boots and suspended in positioning spars, operative leg in traction per surgeon. Head on one pillow. Arm on non-operative side secured on padded armboard <90 degrees abduction. Arm on operative side padded and resting across chest then secured with tape over sheet. Padded perineal post in place per surgeon.
[2025-03-23] MEDS: BUPIVACAINE 0.25% W/ EPI 30 ML VIAL 60 ML INJ (12:05)
[2025-03-23] MEDS: BUPIVACAINE LIPOSOME 266 MG/20 ML VIAL INJ (12:06)
[2025-03-23] MEDS: OXYCODONE IR 5 MG TABLET PO ×2 (14:45→15:32)
[2025-03-23] MEDS: ACETAMINOPHEN 325 MG TABLET 650 MG PO ×2 (15:32→21:40)
[2025-03-23] MEDS: LACTATED RINGERS 1,000 ML 100 ML IV (15:33)
--- NOTE | 2025-03-23 15:35 | OT.IPNOTE ---
Per pt's nurse just came up to the floor from surgery and pt is lots of pain at this time. Therefore check on the pt tomorrow for OT eval.
[2025-03-23] MEDS: IBUPROFEN 400 MG TABLET PO (16:36)
[2025-03-23] MEDS: ASPIRIN EC 81 MG TABLET PO (21:40)
[2025-03-23] MEDS: DOCUSATE 100 MG CAPSULE PO (21:40)
[2025-03-24] MEDS: CEFAZOLIN 2 GM/100 ML PREMIX 100 ML IV (04:22)
[2025-03-24] MEDS: ACETAMINOPHEN 325 MG TABLET 650 MG PO ×2 (05:12→11:30)
[2025-03-24 05:20] LABS: Hematocrit 36.5 % (36-46); Hemoglobin 12.2 g/dL (12.0-16.0)
[2025-03-24] MEDS: LEVOTHYROXINE 125 MCG TABLET PO (06:18)
[2025-03-24 07:39] VITALS: BP 98/68; PULSE 71; RESP 16; TEMP 36.9; O2SAT 97
[2025-03-24] MEDS: DOCUSATE 100 MG CAPSULE PO (08:30)
[2025-03-24] MEDS: ASPIRIN EC 81 MG TABLET PO (08:30)
[2025-03-24 08:52] VITALS: PULSE 84; RESP 16; O2SAT 97
--- NOTE | 2025-03-24 09:06 | PM.DS.1 ---
History of Present Illness History of Present Illness Date Patient Seen: 03/24/25 Time Patient Seen: 09:06 Chief complaint: OPB Narrative: Patient had severe left hip OA and was admitted for left total hip arthroplasty. Discharge Providers Provider Discharge Date: 03/24/25 Primary care physician: Cathryn Kohli MD Consults: 03/18/25 11:05 Consult to Anesthesiology Routine Comment: Consulting Provider: Anesthesiologist Reason for consultation: Surgeon request for cardiac. Has provider been notified: No 03/23/25 06:00 Consult to Anesthesiology Routine Comment: Consulting Provider: Anesthesiologist Reason for consultation: Regional block for post operative pain control Has provider been notified: No 03/23/25 15:15 Consult to Discharge Planning Routine Comment: Consult to Occupational Therapy Evaluate & Treat Comment: Physician Instructions: Evaluate and treat Consult to Physical Therapy Evaluate & Treat Comment: Physician Instructions: post op AJ protocol Discharge provider: Cheyanne Manuel MD Summary Hospital Course Discharge Diagnosis: Severe left hip OA, left total hip arthroplasty Hospital Course: Patient had severe left hip osteoarthritis. She was taken to the operating room and went a left total hip arthroplasty from an anterior approach. She tolerated the procedure well. She had some mild problems with hypotension but did well. She was cleared by Physical therapy in his discharge to home with family. Status at Discharge Cognitive/behavioral status at discharge: oriented Functional status at discharge: uses cane/walker Overall status at discharge: patient is progressing back to baseline Exam Vital Signs (past 8 hours): - 03/24/25 07:39 03/24/25 08:52 Temperature 98.4 F Pulse Rate 71 84 Respiratory Rate 16 16 Blood Pressure 98/68 Pulse Oximetry 97 97 Oxygen Delivery Method Room Air Oxygen Flow Rate 0 Oxygen Delivery Method Room Air Oxygen Flow Rate 0 Narrative Exam Narrative: She was resting comfortably in bed, her dressings intact, she can fire her hip flexor and quad her calves are soft bilaterally she was neurologically intact distally Objective Labs 03/24/25 05:00 Labs: Laboratory Results - last 24 hr 03/24/25 05:00 Hgb 12.2 Hct 36.5 [facility] Medical History (Updated 03/18/25 @ 13:01 by Caroline Clements RN) Schatzki ring of distal esophagus Hiatal hernia Esophageal dysphagia History of left heart catheterization (05/2021) Syncope Breast anomaly History of transcatheter aortic valve replacement (TAVR) Wears glasses Osteoarthritis (~1974) Scoliosis Osteoporosis (~1994) Hearing loss (~1941) Cataracts, bilateral (~2018) Ovarian cyst Irregular menstrual cycle (~1969) Coronary artery disease History of basal cell carcinoma H/O adenomatous polyp of colon Hyperlipidemia LDL goal <100 Hypothyroidism Hypertension Surgical History (Updated 03/18/25 @ 13:01 by Caroline Clements RN) History of esophagogastroduodenoscopy (EGD) (03/03/25) History of microdiscectomy Anesthesia History of ankle surgery History of hysterectomy (~1974) History of repair of rotator cuff (~1994) History of right hip replacement (~2009) History of knee surgery Family History (Updated 02/02/21 @ 20:50 by Yary Araujo) Father Lung cancer Smoker Social History household members: none Smoking Status: Never smoker alcohol intake: current Discharge Assessment & Plan Assessment and Plan Assessment: Doing well after anterior hip replacement. Plan of Treatment: Plan to discharge to home. Keep follow up in 2 weeks. Discharge Plan Discharge Plan Patient Disposition: Home Discharge orders & Medications Discharge Orders: Discharge (Order); Ordered 03/24/25 Ordered By: Cheyanne Manuel Prescriptions: New acetaminophen 325 mg Tablet 650 mg PO Q6H Qty: 90 0RF polyethylene glycol 3350 17 gram Powder In Packet 17 gm PO DAILY PRN (Reason: Constipation) Qty: 14 0RF aspirin 81 mg Tablet,Delayed Release (Dr/Ec) 81 mg PO BID Qty: 90 0RF ibuprofen 400 mg Tablet 400 mg PO Q4H PRN (Reason: Pain, Mild (1-3)) Qty: 90 0RF Continued levothyroxine 125 mcg tablet 125 mcg PO DAILY Qty: 90 1RF Rx Instructions: stop 112 mcg dose fosinopril 20 mg tablet 20 mg PO DAILY Qty: 90 1RF Prevagen Vitamin daily PO aspirin 81 mg tablet,delayed release (DR/EC) 162 mg PO DAILY clotrimazole 10 mg sumeet PO atorvastatin 20 mg tablet 20 mg PO DAILY Qty: 90 0RF metoprolol succinate 25 mg tablet extended release 24 hr 12.5 mg PO DAILY Qty: 90 1RF spironolactone 25 mg tablet 25 mg PO DAILY Qty: 90 1RF Follow up/Referrals: Cathryn Kohli MD [Primary Care Provider, Family Practice] Diet/Activity/Treatments Diet: Diet as Tolerated Activity: Ambulate multiple times a day. Avoid falls. Use walker or cane as needed. Cold/Heat Therapy: Use ice multiple times a day. Other treatments: Take baby aspirin to prevent a blood clot. Skin/Wound/Dressing Care Skin care: Okay to shower. Report to your healthcare provider any signs of infection, such as:: chills, fever, night sweats, increased pain, unusual drainage and unusual redness Dressing: Leave dressing on. Visit Report/Discharge Packet Instructions: DI for Hip Replacement, DI for Prescription Opioid Use Stand Alone Forms: Patient Portal/API, Surgery Discharge Print Language: Danish Discharge Data Primary Care Provider: Cathryn Kohli Attending Provider: Cheyanne Manuel VTE Deep Vein Thrombosis/Pulmonary Embolism Present on Admission: No
--- NOTE | 2025-03-24 11:36 | PT.IIE ---
Current Diagnoses Unilateral primary osteoarthritis, left hip (03/23/25) Surgery Performed Operation Date: 03/23/25 10:45 Actual Procedures p Total Hip Arthroplasty/Anterior Approach(Left) - Cheyanne Manuel MD Surgical History (Last Updated 03/18/25 @ 13:01 by Caroline Clements, RN) Anesthesia History of ankle surgery History of esophagogastroduodenoscopy (EGD) (03/03/25) History of hysterectomy (~1974) History of knee surgery History of microdiscectomy History of repair of rotator cuff (~1994) History of right hip replacement (~2009) Medical History (Last Updated 03/18/25 @ 13:01 by Caroline Clements, RN) Breast anomaly Cataracts, bilateral (~2018) Coronary artery disease Esophageal dysphagia H/O adenomatous polyp of colon Hearing loss (~1941) Hiatal hernia History of basal cell carcinoma History of left heart catheterization (05/2021) History of transcatheter aortic valve replacement (TAVR) Hyperlipidemia LDL goal <100 Hypertension Hypothyroidism Irregular menstrual cycle (~1969) Osteoarthritis (~1974) Osteoporosis (~1994) Ovarian cyst Schatzki ring of distal esophagus Scoliosis Syncope Wears glasses Physical Therapy Inpatient Evaluation/Re-Eval M1 PT/OT-IP Prior Functional Status Start: 03/24/25 11:25 Freq: NEEDED Status: Active Protocol: Document 03/24/25 10:53 MB (Rec: 03/24/25 11:36 MB Desktop) Medical Review Prior Functional Status Medical History Yes Reviewed Communication TANANA, even with hearing aides donned Mobility and Gait Mod I with QC Activities of Daily Mod I and pt states she gets up three times a night to Living and IADL's toilet in BR Social History Household Members none Living Arrangements House Number of Floors ( One Floor Floors) Number of Stairs To Ramp to enter Enter/Railing? Home Environment High Toilet,Walk in Shower Home Equipment Front Wheel Walker,Four Wheel Walker,Quad Cane,Grab Bars In Shower Employment Status Retired M2 PT-IP Current Condition Start: 03/24/25 11:25 Freq: NEEDED Status: Active Protocol: Document 03/24/25 10:53 MB (Rec: 03/24/25 11:36 MB Desktop) Physical Therapy Current Condition Current Condition Evaluation Date 03/24/25 Treatment Diagnosis L AJ M3 PT-IP Subjective Start: 03/24/25 11:25 Freq: NEEDED Status: Active Protocol: Document 03/24/25 10:53 MB (Rec: 03/24/25 11:36 MB Desktop) Therapy Pain Assessment Pain When Pain Assessed During Mobility Pain Present Pain Present Pain Reported Location Left Hip Intensity 3 Scale Used Numeric (0 - 10) M4 PT-IP Mobility and Gait Start: 03/24/25 11:25 Freq: NEEDED Status: Active Protocol: Document 03/24/25 10:53 MB (Rec: 03/24/25 11:36 MB Desktop) PT-Bed Mobility Assessment Rolling Level of Assist Standby Assistance Supine to Sit Supine to Sit Standby Assistance Sit to Supine Sit to Supine Standby Assistance Scooting Scooting to Edge of Standby Assistance Bed PT-Transfer Assessment Sit to and From Stand Sit to and from Standby Assistance Stand Equipment Transfer Assistive Gait Belt,Front Wheeled Walker Device Transfers Transfer Destination Bed,Chair Transfer Technique Ambulation Transfer Ability Level of Assist Standby Assistance Comments Mobility Comments PT notes x2 that her [facility] socks are coming off with stepping and she is not picking up feet with stepping and so OT assists pt with donning socks/shoes Gait Assessment Gait Gait Assistance Standby Assistance Required: Assistive Devices Assistive Device Gait Belt,Front Wheeled Walker Gait Deviations General Gait Pattern Antalgic,Decreased Stride Length,Decreased Feet Clearance,Step-to Gait,Wide Based Gait Factors Limiting Gait Function Factors Limiting Difficulty Following Directions,Incoordination,Limited Gait Function Range of Motion,Pain,Poor Balance,Poor Safety Awareness Comments Gait Comments Wide ALISTAIR with left leg functionally longer than the right with gait, increased Trendelenburg pattern with small scooting steps with gait, slow gait pattern, pt has trouble hearing and understanding PT and OT throughout treatment and tends to answers questions incorrectly/talk about different things when asked questions PT-Balance Assessment Sitting Balance and Reactions Static Sitting Good Balance Ability Dynamic Sitting Good Balance Ability Standing Balance and Reactions Static Standing Good Balance Ability Dynamic Standing Good Balance Ability Device Used RW M5 PT-IP Objective Assessments Start: 03/24/25 11:25 Freq: NEEDED Status: Active Protocol: Document 03/24/25 10:53 MB (Rec: 03/24/25 11:36 MB Desktop) Orientation Orientation/Cognition Level of Alertness Alert Orientation Name,Birthday Language Function Hard of Hearing Ability Safety Awareness Decreased Safety Awareness Comments Pt has trouble hearing and understanding PT and OT throughout treatment and tends to answers questions incorrectly/talk about different things when asked questions; son and grandson answer many questions Gross Range of Motion Upper Extremity ROM Impairments Defer to OT Lower Extremity ROM Assessment Left Impaired Strength Lower Extremity Strength Assessment Left Impaired Coordination Assessment Gross Coordination Gross Coordination Impaired Sensation Assessment Comments Sensation Comments NT Muscle Tone Muscle Tone WNL Yes M6 PT-IP Treatment Start: 03/24/25 11:25 Freq: NEEDED Status: Active Protocol: Document 03/24/25 10:53 MB (Rec: 03/24/25 11:36 MB Desktop) Physical Therapy Treatment Exercises Exercises Ankle Pumps,Gluteal Sets,Quad Sets,Heel Slides Education Education Provided Precautions,Weight Bearing Status,Post-Op Packet,Safety M7 PT-IP Assessment and Plan Start: 03/24/25 11:25 Freq: NEEDED Status: Active Protocol: Document 03/24/25 10:53 MB (Rec: 03/24/25 11:36 MB Desktop) PT Summary Assessment and Plan Potential Rehabilitation Fair Potential Status of Condition Evolving at Evaluation Summary Impairments Pain,ROM,Strength,Balance,Coordination,Cognition,Bed Mobility,Transfers,Gait,Activity Tolerance Assessment Summary Pt is an 89 y/o female presenting POD1 L anterior AJ. Pt's son and grandson are in room for assessment. Pt has trouble hearing and understanding PT and OT throughout treatment and tends to answers questions incorrectly/talk about different things when asked questions. Pt presents with orthostatic hypotension with BP and HR in LUE sitting to standing: sitting 103/ 60, 92; standing 83/63, 99, standing 1' 92/56, 98, after gait 124/77, 96. Pt presents with shuffling steps with socks moving off with steps. She requires cues for hand placement for transfers. Her gait is slow and with wide ALISTAIR. PT provides education to pt and son and grandson about orthostatic hypotension, assistance when up at night to toilet and in the a.m., taking time to transfer, fluid intake and following up with PCP about medications. Ed pt in no hyperextension and to use RW at this time. She is set-up for OPPT on [place] where she lives and will have family assistance at d/c. Frequency of Treatment Frequency Of Discharge Treatment Precautions Other Precautions No hyperextension left hip Weight Bearing Status Weight Bearing Weight Bear as Tolerated Status Recommendations To Nursing Amount of Assist Standby Assistance Needed Discharge Recommendations PT Discharge Home with 17/03 Assist Available,Outpatient PT Recommendations Transportation Needs Private Vehicle at Discharge - PT assist x1
--- NOTE | 2025-03-24 12:00 | OT.IP.EVAL ---
Current Diagnoses Unilateral primary osteoarthritis, left hip (03/23/25) Surgery Performed Operation Date: 03/23/25 10:45 Actual Procedures p Total Hip Arthroplasty/Anterior Approach(Left) - Cheyanne Manuel MD Past Medical History (Last Updated 03/18/25 @ 13:01 by Caroline Clements, RN) Breast anomaly Cataracts, bilateral (~2018) Coronary artery disease Esophageal dysphagia H/O adenomatous polyp of colon Hearing loss (~1941) Hiatal hernia History of basal cell carcinoma History of left heart catheterization (05/2021) History of transcatheter aortic valve replacement (TAVR) Hyperlipidemia LDL goal <100 Hypertension Hypothyroidism Irregular menstrual cycle (~1969) Osteoarthritis (~1974) Osteoporosis (~1994) Ovarian cyst Schatzki ring of distal esophagus Scoliosis Syncope Wears glasses Surgical History (Last Updated 03/18/25 @ 13:01 by Caroline Clements, RN) Anesthesia History of ankle surgery History of esophagogastroduodenoscopy (EGD) (03/03/25) History of hysterectomy (~1974) History of knee surgery History of microdiscectomy History of repair of rotator cuff (~1994) History of right hip replacement (~2009) Occupational Therapy Inpatient Evaluation/Re-Eval M1 PT/OT-IP Prior Functional Status Start: 03/24/25 11:25 Freq: NEEDED Status: Active Protocol: Document 03/24/25 11:42 [facility] (Rec: 03/24/25 12:00 [facility] Desktop) Medical Review Prior Functional Status Medical History Yes Reviewed Communication NORTHWAY, even with hearing aides donned Mobility and Gait Mod I with QC Activities of Daily Mod I and pt states she gets up three times a night to Living and IADL's toilet in BR Social History Household Members none Living Arrangements House Number of Floors ( One Floor Floors) Number of Stairs To Ramp to enter Enter/Railing? Home Environment High Toilet,Walk in Shower Home Equipment Front Wheel Walker,Four Wheel Walker,Quad Cane,Detective Supervisor, Sock Aid,Grab Bars In Shower Employment Status Retired Additional Social Pt's daughter to be staying with her for 2 weeks and History Comment have more family to assist her afterwards. M2 OT-IP Current Condition Start: 03/24/25 11:42 Freq: Status: Active Protocol: Document 03/24/25 11:42 [facility] (Rec: 03/24/25 12:00 [facility] Desktop) Occupational Therapy Current Condition Current Condition Evaluation Date 03/24/25 Treatment Diagnosis S/P L AJ Anterior Diagnosis Onset Date 03/23/25 Post Operative Precautions Other Precautions NO left hip hyperextension M3 OT- IP Subjective and Pain Start: 03/24/25 11:42 Freq: Status: Active Protocol: Document 03/24/25 11:42 [facility] (Rec: 03/24/25 12:00 [facility] Desktop) OT- Subjective Occupational Therapy Visit Type Type Initial Evaluation Visit Start Time 10:55 Visit Stop Time 11:25 Occupational Therapy Visit Comments Patient Comments Pt already dressed and do caregiver training with pt's family. Patient/Caregiver TO go home. Goals OT Pain Assessment Pain When Pain Assessed During Mobility Pain Present Pain Present Pain Reported Location Left Hip Intensity 3 Scale Used Numeric (0 - 10) M4 OT- IP ADL's Start: 03/24/25 11:42 Freq: Status: Active Protocol: Document 03/24/25 11:42 [facility] (Rec: 03/24/25 12:00 [facility] Desktop) OT [id number] Comments OT Self-Feeding Not at meal time. Comments OT ADL-Grooming Comments OT Grooming Comments Not observed. OT ADL-Oral Care Comments Oral Care Comments Not observed. OT ADL-Dressing General Eval Lower Body Dressing Standby Assistance Ability Comments OT Dressing Comments Pt able to slip in her feet into slip on shoes. Stressed to pt to be sure to wear well fitting shoe to prevent from falls. OT ADL-Toileting Comments OT Toileting Pt not having to go. Pt's family states bathroom too Comments small for BSC . Pt states has to get up 3x/night- pt does wear pull up briefs. Encouraged family to be there when she gets up to the bathroom. Spoke of having good lighting and assist. Pt's son states hopefully pt will call for assist. Spoke of use of alarms or monitor for safety if needed as pt is a high fall risk. OT ADL-Bathing Comments OT Bathing Comments Spoke of care of the dressing for showering needs. M5 OT- IP IADL's Start: 03/24/25 11:42 Freq: Status: Active Protocol: Document 03/24/25 11:42 [facility] (Rec: 03/24/25 12:00 [facility] Desktop) OT-Instrumental Activities of Daily Living Medication Management Medication Caregiver Provides Supervision Management M6 OT- IP Functional Cognition Start: 03/24/25 11:42 Freq: Status: Active Protocol: Document 03/24/25 11:42 [facility] (Rec: 03/24/25 12:00 [facility] Desktop) Cognitive Factors Limiting Selfcare Function Cognitive Ability Level of Alertness Alert Patient Orientation Name,Age,Birthday,Place,Situation Attention Span Capable of Focused Attention,Capable of Sustained Ability Attention Ability to Follow Able to Follow One Step Commands Commands Memory Description Short Term Impaired Cognitive Comments Cognitive Assessment Pt needing safety reminders for FWW use hand placement Comments to push up from the bed and reach back prior to sitting down. OT- Vision and Hearing OT- Hearing Assessment OT- Hearing Hearing Impaired,Use of Hearing Aids Assessment OT- Vision Assessment Visual Acuity Glasses All The Time Visual Attentiveness WFL Occular Pursuits WFL M7 OT- IP Mobility and Balance Start: 03/24/25 11:42 Freq: Status: Active Protocol: Document 03/24/25 11:42 [facility] (Rec: 03/24/25 12:00 [facility] Desktop) OT- Bed Mobility Assessment Supine to Sit Supine to Sit Assist Standby Assistance Sit to Supine Sit to Supine Assist Standby Assistance OT-Transfer Assessment Sit to and From Stand Sit to and from Contact Guard Assistance Stand Transfers Transfer Ability Contact Guard Assistance Technique Transfer Destination Bed,Chair Transfer Technique Stand Step Pivot Devices Transfer Assistive Gait Belt,Front Wheeled Walker Devices Comments Mobility Comments Pt CGA as a little unsteady on her feet and heavily leans to the right. Pt does have scoliosis. Pt's family able to assist pt for mobility needs. BP sitting 103/60, standing 83/63, 92/56 but not symptomatic, after walking in the hallway 124/77. OT- Balance Assessment Sitting Balance and Reactions Static Sitting Good Balance Ability Dynamic Sitting Good Balance Ability Standing Balance and Reactions Static Standing Good Balance Ability Dynamic Standing Fair Balance Ability M9 OT- IP Assessment and Plan Start: 03/24/25 11:42 Freq: Status: Active Protocol: Document 03/24/25 11:42 [facility] (Rec: 03/24/25 12:00 [facility] Desktop) OT Summary Assessment and Plan Potential Rehabilitation Good Potential Analytic Complexity Low at Evaluation Summary OT Impairments Pain,Balance,Functional Mobility,Dressing,Toileting, Bathing,Toilet Transfers,Shower Transfers Progress Towards Progressing Toward Goals Goals Assessment Summary Pt low complexity and main barriers are pain, decreased hearing and safety awareness. Pt to go home with 24/7 assist and have outpt PT. Emphasized to pt and family to have assist especially when getting up to the bathroom at night. Pt is a high fall risk as has a drop in BP when initially standing. Also able to go over information of exercises for her BLE with her son for the pt. Goals Self-Feeding Goal Independent Grooming Goal Independent Dressing Goal Independent Toileting Goal Independent Bathing Goal Minimal Assistance Toilet Transfer Goal Independent Shower Transfer Goal Standby Assistance Days to Meet Goals 10 Frequency of Treatment Other frequency 5x/week Treatment Plan OT Treatment Plan ADL Training,Functional Mobility,Patient/Family Education,Discharge Planning Other Treatment Pt would benefit from SLUMS Recommendations and Next Treatment Focus Discharge Recommendations OT Discharge Home with 24/7 Assist Available,Outpatient PT Recommendations Home Equipment Needs BSC Transportation Needs Private Vehicle at Discharge
--- NOTE | 2025-03-24 12:13 | PC.NURSE ---
Patient is cleared medically for discharge today. SBP slightly low this a.m. and BP meds held. Upon walking with PT pt is orthostatic but asymptomatic. She recovers well when sitting in the chair. Patient and daughter verbalize understanding to check BP at home before taking BP medications. She reports pain well controlled with PRN tylenol today. Son and daughter acknowledge understanding of medications, site care, s/sx of infection, activity limitations as well as follow up appointment. She is escorted by RN via w/ch to private vehicle today at 1145 a.m. for discharge home back to [facility] with all of her belongings.
--- NOTE | 2025-03-24 12:32 | CM.DANOTE ---
B DCP Assessment note pt is a 89yo F POD1 left hip repair with DR. Manuel PCP Cathryn Maldonado Payer Medicare and [facility] reviewed EMR per chart review, pt lives indep on [facility]. no DME at baseline but per OT note, has necessary DME for home post op. local son Dieudonne to stay with her at dc. per RN lots of family in room to support post op. Pt already left when this IDENTIFICATION CLERK came to room to attempt assessment PT/OT rec home with assistance P: dc home today with OP f/u and family support. no further CM needs at this time will continue to follow as needed BRITTANY Veliz Discharge Planning/Care Management CM Discharge Assessment Start: 03/23/25 14:33 Freq: Status: Discharge Protocol: Document 03/24/25 12:31 [facility] (Rec: 03/24/25 12:32 [facility] Desktop) Discharge Planning Assessment Assigned Discharge BRITTANY Rousseau Mold Mechanic DPOA/Assigned astrid Bro Designee Name Contact Information [phone] Advance Directives? Yes Advance Directives No on File History Provided By Patient,Medical Record Prior Living House Arrangements Household Members none Type of Drives own vehicle transporation used prior to admit Discharge Plan Home Referrals Initiated None needed Review Status In Process Please Provide Date 03/24/25 Initial DC Assessment Was Performed Next Review Type Continued Stay Review Pre-Anesthesia Assessment Start: 03/18/25 10:39 Freq: Status: Complete Protocol: Document 03/18/25 10:39 [facility] (Rec: 03/18/25 11:05 [facility] [id number]) Pre-Anesthesia Assessment PAC Comment 03/18/25 Chart review. Patient Information Chart Review Reviewed Via Diagnostic Results BMP/CMP,CBC,EKG,Urinalysis Comment 02/16/25 at . Primary Care Cathryn Kohli Provider Seen Specialist in Yes Last 12 Months Specialist Seen Pocket Setter Lockstitch,Orthopedist Primary Language Maltese Preferred Language Maltese Land Manager Required No Height 157.48 cm Weight 62.596 kg Body Mass Index (BMI 25.2 ) Hearing Ability Hearing Impaired Visual Assist Glasses Barriers to Learning Auditory,Memory Anesthesia Review Yes: Surgeon request for cardiac. Requested Landing Signal Officer No alcohol intake current Smoking Status Never smoker Musculoskeletal Joint Pain Symptoms History of Falling ( Yes Recent or History of ) Patient is No completely paralyzed or completely immobile Prosthesis or Cane Orthotic Device Is patient on oxygen No ? Hx Sleep Apnea No Currently Taking a Yes: Metoprolol 12.5mg daily. Beta Kathleen Hx Syncope or Yes Dizziness Anti-Coagulant Yes: Aspirin 162mg daily. Therapy Has a Pocket Setter Lockstitch Yes Pocket Setter Lockstitch name Sr Omar EDWARDS Cardiac Testing Yes: Echo 09/17. Hx Pacemaker/ICD No Cardiac Clearance Yes Received Dysphagia Yes Gastrointestinal Dysphagia,Reflux Symptoms Bladder Pattern Incontinent Urinary Catheter No Present Hx Urinary Self No Catheterization Diabetes No Patient No Lactating No Presence of External Yes: Right hip, aortic valve. or Internal Medical Devices Lives With none Current Living House Arrangements Support System Child/Children Patient Discharge Return Home Plan Description Emergency Contact Sheri Blackmon - daughter Name Emergency Contact [phone] Phone Number Advance Directives No on File
== END 2025-03-24 11:45 | disposition home or self-care (01) ==
LOC: OR 08:54 → AC 13:46
PROVIDERS: PCP Family Medicine; Referring Provider Orthopaedic Surgery; Visit Provider Orthopaedic Surgery
PROC: (CPT 27130; principal; 2025-03-23 10:45)
DX: M16.12 Unilateral primary osteoarthritis, left hip (principal); Z96.652 Presence of left artificial knee joint; M25.752 Osteophyte, left hip
CPT/HCPCS: 27130; 36415; 73502; 76000; 85014; 85018; 97161; 97165; 97530; 97535; C1776; J0330; J0666; J0690; J1100; J2405; J2704; J3010

== ENCOUNTER → 2025-05-16 13:02 | Outpatient (CLI) | payer MEDICARE, OTHER, SELFPAY ==
[2025-03-23 14:56] VITALS: BMI 26.2
[2025-05-16 19:17] LABS: Alanine Aminotransferase 20 IU/L (<35); Albumin 4.3 g/dL (3.5-5.0); Albumin Globulin Ratio 1.3 (1.0-2.8); Alkaline Phosphatase 83 U/L (38-126); Blood Urea Nitrogen 16 mg/dL (7-17); Calcium 10.1 mg/dL (8.4-10.2); Carbon Dioxide 31 mmol/L (22-32); Chloride 98 mmol/L (98-107); Estimated Glomerular Filt Rate 59 mL/min (>60); Globulin 3.2 g/dL (1.7-4.1); Glucose 111 mg/dL (70-99); HEMOLYSIS < 15 (0-50); Potassium 4.5 mmol/L (3.4-5.1); Sodium 136 mmol/L (137-145); Total Protein 7.5 g/dL (6.3-8.2)
[2025-05-16 19:47] LABS: Thyroid Stimulating Hormone 1.15 uIU/mL (0.47-4.68)
== END ==
PROVIDERS: PCP Family Medicine; Visit Provider Family Medicine
DX: R13.10 Dysphagia, unspecified (principal); R39.9 Unspecified symptoms and signs involving the genitourinary system; R94.4 Abnormal results of kidney function studies
CPT/HCPCS: 80053; 84443

== ENCOUNTER → 2025-05-17 13:17 | Outpatient (CLI) | payer MEDICARE, OTHER, SELFPAY ==
[2025-03-23 14:56] VITALS: BMI 26.2
[2025-05-17 19:51] LABS: Appearance Urine UA CLEAR; Bilirubin Urine UA NEGATIVE (NEGATIVE); Color Urine UA YELLOW; Glucose Urine UA NEGATIVE (Negative); Ketones Urine UA TRACE (NEGATIVE); Leukocyte Esterase Urine UA 1+ (NEGATIVE); Nitrite Urine UA NEGATIVE (Negative); Occult Blood Urine UA NEGATIVE (Negative); Protein Urine UA NEGATIVE (Negative); Specific Gravity Urine UA 1.025 (1.000-1.035); Urobilinogen Urine UA 1.0 E.U./dL (0.2)
[2025-05-17 19:57] LABS: pH Urine UA 6.0 (4.5-8.0)
== END ==
PROVIDERS: PCP Family Medicine; Visit Provider Family Medicine
DX: R39.9 Unspecified symptoms and signs involving the genitourinary system (principal); R94.4 Abnormal results of kidney function studies; R13.10 Dysphagia, unspecified; E03.9 Hypothyroidism, unspecified
CPT/HCPCS: 81003; 81015

== ENCOUNTER → 2025-06-06 14:26 | Outpatient (CLI) | payer MEDICARE, OTHER, SELFPAY ==
[2025-05-31 15:40] VITALS: BMI 26.2
--- NOTE | 2025-06-06 15:27 | DI.US.S_ITS ---
PROCEDURE: US SOFT TISSUE HEAD AND NECK INDICATIONS: RIGHT SUBMANDIBULAR LUMP TECHNIQUE: Real-time scanning was performed of the neck region of interest, with image documentation. COMPARISON: None. FINDINGS: The palpable abnormality corresponds to the right submandibular gland. The similar and tibial gland is normal in appearance with normal vascularity. No dilated ducts. No visualized stone. IMPRESSION: The palpable abnormality corresponds to a sonographically normal right submandibular gland. Dictated by: Demian Santo M.D. on 06/06/2025 at 17:17 Approved by: Demian Santo M.D. on 06/06/2025 at 17:18
== END ==
LOC: US 14:27
PROVIDERS: PCP Family Medicine; Referring Provider Family Medicine; Visit Provider Family Medicine
DX: R22.1 Localized swelling, mass and lump, neck (principal)
CPT/HCPCS: 76536